=== PATIENT | male | born 1980 | race Caucasian/White ===

== ENCOUNTER → 2019-07-16 14:57 | Outpatient (CLI) | payer MEDICAID, SELFPAY ==
[2019-07-16 14:16] VITALS: BMI 26.4
[2019-07-16 16:11] LABS: Free T3 2.5 pg/mL (2.18-3.98); T4 Free Direct 1.03 ng/dL (0.76-1.46); Thyroid Stim Hormone (TSH) 4.21 uIU/mL (0.358-3.74)
== END ==
PROVIDERS: Referring Provider Internal Medicine Endocrinology, Diabetes & Metabolism; Visit Provider Internal Medicine Endocrinology, Diabetes & Metabolism
DX: E05.90 Thyrotoxicosis, unspecified without thyrotoxic crisis or storm (principal)
CPT/HCPCS: 84439; 84443; 84481

== ENCOUNTER → 2019-12-26 16:15 | Outpatient (CLI) | payer OTHER, MEDICAID, SELFPAY ==
[2019-11-28 08:03] VITALS: BMI 26.4
[2019-12-26 17:41] LABS: Free T3 2.5 pg/mL (2.18-3.98); T4 Free Direct 1.26 ng/dL (0.76-1.46); Thyroid Stim Hormone (TSH) 1.58 uIU/mL (0.358-3.74)
== END ==
PROVIDERS: PCP Internal Medicine; Referring Provider Internal Medicine Endocrinology, Diabetes & Metabolism; Visit Provider Internal Medicine Endocrinology, Diabetes & Metabolism
DX: E05.00 Thyrotoxicosis with diffuse goiter without thyrotoxic crisis or storm (principal)
CPT/HCPCS: 36415; 84439; 84443; 84481